=== PATIENT | female | born 1975 | race Caucasian/White ===

== ENCOUNTER 2018-06-07 20:02 | Emergency (ER) | payer MEDICAID ==
[2018-06-07] MEDS: DIPHENHYDRAMINE 50 MG CAP PO (23:57)
[2018-06-07] MEDS: predniSONE 20 MG TAB PO (23:57)
== END 2018-06-08 00:40 | disposition home or self-care (01) ==
LOC: FTE 06-08 00:40
DX: L25.9 Unspecified contact dermatitis, unspecified cause (principal)
CPT/HCPCS: 99283; J7512

== ENCOUNTER 2018-07-02 03:24 | Emergency (ER) | payer MEDICAID | END 2018-07-02 07:25 | disposition home or self-care (01) | LOC: E/R 03:24 | DX: L29.9 Pruritus, unspecified (principal) | CPT/HCPCS: 99283; Z7502 ==